=== PATIENT | female | born 1985 | race Two or more races ===

== ENCOUNTER → 2020-08-17 | Outpatient (CLI) | payer MEDICAID ==
[2020-08-17 09:46] LABS: Basophils # (auto) 0.1 10 ^3/uL (0-0.2); Basophils % (auto) 0.9 % (0.0-2.0); Eosinophils # (auto) 0.3 10 ^3/uL (0-0.8); Eosinophils % (auto) 2.7 % (0.0-7.0); Hematocrit 41.2 % (36.0-46.0); Hemoglobin 13.6 g/dL (12.2-16.2); Lymphocytes # (auto) 1.4 10 ^3/uL (0.4-5.4); Lymphocytes % (auto) 12.9 % (10.0-50.0); Mean Corpuscular Hemoglobin 27.6 pg (28.0-32.0); Mean Corpuscular Volume 83.5 fL (80.0-100.0); Monocytes # (auto) 0.5 10 ^3/uL (0-1.3); Monocytes % (auto) 4.7 % (0.0-12.0); Neutrophils # (auto) 8.2 10 ^3/uL (1.6-8.6); Neutrophils % (auto) 78.8 % (37.0-80.0); Platelet Count (auto) 331 10^3/uL (140-450); Red Blood Cells 4.94 10^6/uL (4.0-5.20); Red Cell Distribution Width 14.3 % (11.8-14.3); White Blood Cell 10.4 10^3/uL (4.4-10.8)
[2020-08-17 10:00] LABS: Urine Bacteria FEW /hpf (None Seen); Urine Blood Negative /uL (Negative); Urine Specific Gravity 1.014 (1.001-1.035); Urine WBC <1 /hpf (0 - 5)
[2020-08-17 10:12] LABS: Potassium 4.7 mmol/L (3.5-5.1)
[2020-08-17 10:21] LABS: BUN/Creatinine Ratio 13.2; Bilirubin, Total 0.6 mg/dL (0.2-1.0); Total Protein 7.4 g/dL (6.4-8.2)
== END | disposition home or self-care (01) ==
LOC: LAB 09:27
PROVIDERS: ATTEND Internal Medicine Nephrology
DX: E11.9 Type 2 diabetes mellitus without complications (principal); I10 Essential (primary) hypertension; N39.0 Urinary tract infection, site not specified
CPT/HCPCS: 36415; 80053; 80061; 81001; 85025

== ENCOUNTER 2020-10-14 08:26 | Emergency (ER) | payer MEDICAID ==
[~2020-10-14] VITALS: Ht 162.6 cm; Wt 95.3 kg
[2020-10-14 08:34] VITALS: BP 155/97
== END 2020-10-14 11:30 | disposition left against medical advice (07) ==
LOC: ER 08:26
DX: R10.32 Left lower quadrant pain (principal); R11.0 Nausea; R19.7 Diarrhea, unspecified; Z53.21 Procedure and treatment not carried out due to patient leaving prior to being seen by health care provider

== ENCOUNTER → 2023-02-24 | Outpatient (CLI) | payer MEDICAID ==
[~2023-02-24] VITALS: Ht 162.6 cm; Wt 93.0 kg
== END | disposition home or self-care (01) ==
LOC: Rad HDHVI 09:38
PROVIDERS: ATTEND Internal Medicine Cardiovascular Disease
DX: Z01.810 Encounter for preprocedural cardiovascular examination (principal); R07.9 Chest pain, unspecified; I10 Essential (primary) hypertension; E11.69 Type 2 diabetes mellitus with other specified complication; E78.5 Hyperlipidemia, unspecified; Z82.49 Family history of ischemic heart disease and other diseases of the circulatory system
CPT/HCPCS: 78452; 93017; 96374; A9500

== ENCOUNTER → 2023-02-28 | Outpatient (CLI) | payer MEDICAID | END | disposition home or self-care (01) | LOC: Rad HDHVI 10:06 | PROVIDERS: ATTEND Internal Medicine Cardiovascular Disease | DX: R00.2 Palpitations (principal); E78.5 Hyperlipidemia, unspecified | CPT/HCPCS: 93306 ==

== ENCOUNTER 2025-01-15 12:05 | Emergency (ER) | payer MEDICAID, OTHER ==
[~2025-01-15] VITALS: Ht 162.6 cm; Wt 75.0 kg
[2025-01-15 12:09] VITALS: BP 146/105; RESP 15; TEMP 97.9; O2SAT 100
--- NOTE | 2025-01-15 13:25 | ED.PDOC ---
History of Present Illness HPI Comments 39-YEAR-OLD FEMALE PRESENTS TO THE ER WITH PRIOR MEDICAL HISTORY OF DIABETES, HYPERTENSION, HIGH LIPIDS AND A CHIEF COMPLAINT OF THE CHEST PAIN. PATIENT REPORTS ON BEING AWOKEN FROM HAVING [place] AND DUE CHEST PAIN WHICH HE WAS A TINGLING SENSATION DOWN THE LEFT ARM LAST NIGHT. WHEN THE PATIENT WOKE UP THIS MORNING SHE HAD A CONSTANT CHEST PAIN AND NOTES ON HAVING PAIN WORSENS WHEN LYING FLAT. PATIENT HAS HAD A STRESS TEST TWO YEARS AGO WHICH WAS NEGATIVE. PATIENT DOES NOT HAVE A SIGNIFICANT SHORTNESS A BREATH AT THIS TIME. DENIES ANY OTHER SYMPTOMS AT THIS TIME. DENIES CHILLS, FEVER, N/V/D. NO OTHER ASSOCIATED SYMPTOMS, MODIFIERS, RECENT INJURIES OR SICK CONTACTS PRESENT AT THIS TIME. 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 History Family History Family History: Reviewed,noncontributory to illness, Unknown Social History Smoker: Non-Smoker Alcohol: Denies ETOH Use Drugs: Denies Drug Use Lives In: Home Constitutional: denies: chills, diaphoresis, fatigue, fever, malaise, sweats, weakness, others EENTM: denies: blurred vision, double vision, ear bleeding, ear discharge, ear drainage, ear pain, ear ringing, eye pain, eye redness, hearing loss, mouth pain, mouth swelling, nasal discharge, nose bleeding, nose congestion, nose pain, photophobia, tearing, throat pain, throat swelling, voice changes, others Respiratory: reports: shortness of breath; denies: cough, hemoptysis, orthopnea, SOB at rest, SOB with excertion, stridor, wheezing, others Cardiovascular: reports: chest pain; denies: dizzy spells, diaphoresis, Dyspnea on exertion, edema, irregular heart beat, left arm pain, lightheadedness, palpitations, PND, syncope, others Gastrointestinal: denies: abdomen distended, abdominal pain, blood streaked bowels, constipated, diarrhea, dysphagia, difficulty swallowing, hematemesis, melena, nausea, poor appetite, poor fluid intake, rectal bleeding, rectal pain, vomiting, others Genitourinary: denies: abnormal vagina bleeding, burning, dyspareunia, dysuria, flank pain, frequency, hematuria, incontinence, pain, , vagina discharge, urgency, others Neurological: denies: dizziness, fainting, headache, left sided numbness, left sided weakness, numbness, paresthesia, pre-existing deficit, right sided numbness, right sided weakness, seizure, speech problems, tingling, tremors, weakness, others Musculoskeletal: denies: back pain, gout, joint pain, joint swelling, muscle pain, muscle stiffness, neck pain, others Integumetry: denies: bruises, change in color, change in hair/nails, dryness, laceration, lesions, lumps, rash, wounds, others Allergic/Immunocompromised: denies: Difficulty Healing, Frequent Infections, Hives, Itching, others Hematologic/Lymphatic: denies: anemia, blood clots, easy bleeding, easy bruising, swollen glands, others Endocrine: denies: excessive hunger, excessive sweating, excessive thirst, excessive urination, flushing, intolerance to cold, intolerance to heat, unexp lained weight gain, unexplained weight loss, others Psychiatric: denies: anxiety, bipolar disorder, depression, hopeless, panic disorder, schizophrenia, sleepless, suicidal, others All Other Systems: Reviewed and Negative Physical Exam General Appearance: No Apparent Distress, Normal HEENT: Normal ENT Inspection, Pharynx Normal, TMs Normal Neck: Full Range of Motion, Non-Tender, Normal, Normal Inspection Respiratory: Chest Non-Tender, Lungs Clear, No Accessory Muscle Use, No Respiratory Distress, Normal Breath Sounds Cardiovascular: No Edema, No JVD, No Murmur, No Gallop, Normal Peripheral Pulse s, Regular Rate/Rhythm Breast Exam: Deferred Gastrointestinal: No Organomegaly, Non Tender, No Pulsatile Mass, Normal Bowel Sounds, Soft Genitalia: Deferred Pelvic: Deferred Rectal: Deferred Extremities: No calf tenderness, Normal capillary refill, Normal inspection, Normal range of motion, Non-tender, No pedal edema Musculoskeletal : Apperance: Normal Neurologic: Alert, neuropsychology division chief II-XII nml as Tested, No Motor Deficits, Normal Affect, Normal Mood, No Sensory Deficits Cerebellar Function: Normal Reflexes: Normal Skin: Dry, Normal Color, Warm Lymphatic: No Adenopathy Was a procedure done? Was a procedure done?: No EKG EKG : Pulse Rate (adult): 109 [place]: Normal Cardiac Rhythm: ST Block: None Hypertrophy: None ST: Normal Differential Dx Considerations may include: Mi, anxiety, pneumonia, pleural effusion, musculoskeletal chest pain X-Ray, Labs, Meds, VS Vital Signs Date Time Temp Pulse Resp B/P (MAP) Pulse Ox O2 Delivery O2 Flow Rate FiO2 01/15/25 13:25 109 01/15/25 13:08 100 01/15/25 12:11 102 01/15/25 12:09 97.9 100 15 146/105 100 97.9 Lab Test 01/15/25 13:11 01/15/25 12:44 01/15/25 12:15 Range/Units Troponin I High Sensitivity < 3 L < 3 L </=34 ng/L White Blood Count 10.9 H 4.4-10.8 10^3/uL Red Blood Count 5.54 H 4.0-5.20 10^6/uL Hemoglobin 13.5 12.2-16.2 g/dL Hematocrit 41.7 36.0-46.0 % Mean Corpuscular Volume 75.1 L 80.0-100.0 fL Mean Corpuscular Hemoglobin 24.3 L 28.0-32.0 pg Mean Corpuscular Hemoglobin Concent 32.3 32.0-36.0 g/dL Red Cell Distribution Width 16.1 H 11.8-14.3 % Platelet Count 456 H 140-450 10^3/uL Mean Platelet Volume 8.1 6.9-10.8 fL Neutrophils (%) (Auto) 69.1 37.0-80.0 % Lymphocytes (%) (Auto) 25.1 10.0-50.0 % Monocytes (%) (Auto) 4.7 0.0-12.0 % Eosinophils (%) (Auto) 0.8 0.0-7.0 % Basophils (%) (Auto) 0.3 0.0-2.0 % Neutrophils # (Auto) 7.5 1.6-8.6 10 ^3/uL Lymphocytes # (Auto) 2.7 0.4-5.4 10 ^3/uL Monocytes # (Auto) 0.5 0-1.3 10 ^3/uL Eosinophils # (Auto) 0.1 0-0.8 10 ^3/uL Basophils # (Auto) 0 0-0.2 10 ^3/uL Nucleated Red Blood Cells 0.1 % Sodium Level 143 136-145 mmol/L Potassium Level 3.9 3.5-5.1 mmol/L Chloride Level 100 98-107 mmol/L Carbon Dioxide Level 28 20-31 mmol/L Anion Gap 15 5-15 Blood Urea Nitrogen 8 L 9-23 mg/dL Creatinine 0.66 0.550-1.02 mg/dL Glomerular Filtration Rate Calc 114 >90 mL/min BUN/Creatinine Ratio 12.1 10.0-20.0 Serum Glucose 103 74-106 mg/dL Calcium Level 10.5 H 8.7-10.4 mg/dL X-Ray, Labs, Meds, VS Comment Imaging was reviewed by this provider, there is no obvious pathological or acute disease process. Pending radiology review Labs were reviewed by this provider, no abnormalities Vital signs reviewed by this provider, clinically stable Time of 1ST Reevaluation: 13:50 Reevaluation 1ST: Unchanged Patient Education/Counseling: Diagnosis, Treatment, Prognosis, Need For Follow Up (Follow up with PCP next available appointment. Return to the emergency department if symptoms worsen.) Family Education/Counseling: No Family Present SEPSIS Sepsis Screen Date sepsis recognized/suspect: Jan 15, 2025 Time Sepsis recognized/suspect: 121 Recent Procedure: No On Antibiotic Therapy: No Respiratory Rate >20: No Heart Rate >90: No Temp<36 C (96.8 F) or >38.3 C: No SBP <90 or MAP <65 mmHG: No New Acute Mental Status Change: No Is the patient on CPAP, BIPAP,: No Physician Orders Electrocardigram (01/15/25 12:08) Electrocardigram (01/15/25 13:08) Electrocardigram (01/15/25 15:08) Chest Xray 1 View (01/15/25 12:44) Ketorolac Injection (Toradol Injection) (01/15/25 15:45) Vital Signs Date Time Temp Pulse Resp B/P (MAP) Pulse Ox O2 Delivery O2 Flow Rate FiO2 01/15/25 13:25 109 01/15/25 13:08 100 01/15/25 12:11 102 01/15/25 12:09 97.9 100 15 146/105 100 97.9 Laboratory Tests Test 01/15/25 12:44 White Blood Count 10.9 10^3/uL (4.4-10.8) H Departure 1 Departure Time of Disposition: 15:46 Impression: Primary Impression: Musculoskeletal chest pain Disposition: HOME / SELF CARE / HOMELESS Condition: Stable e-Prescriptions Cyclobenzaprine Hcl (Cyclobenzaprine Hcl) 5 Mg Tab 1 TAB PO TID, #30 TAB Prov: THO LOPEZ 01/15/25 Discharged With: Self Critical Care Note Critical Care Time?: No Stability Stability form required: No Heart Score Heart Score: Heart Score Response (Comments) Value History Slightly Suspicious 0 EKG Normal 0 Age <45 0 Risk Factors No known risk factors 0 Troponin Normal limit 0 Total 0 I personally scribed for THO LOPEZ ([email or web address]) on 01/15/25 at 13:25. Electronically submitted by Johan Jimenez ([email or web address]). THO LOPEZ Jan 15, 2025 13:25
[2025-01-15 13:41] LABS: Nucleated Red Blood Cells % 0.1 %
[2025-01-15 13:43] LABS: Hematocrit 41.7 % (36.0-46.0); Hemoglobin 13.5 g/dL (12.2-16.2); Mean Corpuscular Hemoglobin 24.3 pg (28.0-32.0); Mean Corpuscular Volume 75.1 fL (80.0-100.0)
[2025-01-15 13:56] LABS: Chloride 100 mmol/L (98-107); Potassium 3.9 mmol/L (3.5-5.1); Sodium 143 mmol/L (136-145)
[2025-01-15 13:58] LABS: Anion Gap 15 (5-15); Carbon Dioxide 28 mmol/L (20-31)
[2025-01-15 14:00] LABS: Calcium 10.5 mg/dL (8.7-10.4)
[2025-01-15 14:03] LABS: BUN/Creatinine Ratio 12.1 (10.0-20.0); Blood Urea Nitrogen 8 mg/dL (9-23); Glucose 103 mg/dL (74-106)
--- NOTE | 2025-01-15 14:14 | DVH ---
EXAM: XY CHEST XRAY 1 VIEW Indication: Pain Technique: Single frontal view of the chest was obtained Comparison: None FINDINGS: Lines and Tubes: None Lungs: No focal consolidation. Pleura: No effusion. No pneumothorax. Cardiomediastinal contours: Unremarkable Bones: No acute osseous abnormality. IMPRESSION: No acute cardiopulmonary disease.
[2025-01-15 15:07] VITALS: PULSE 91
[2025-01-15] MEDS ORDERED: KETOROLAC TROMETH 30 MG/ML 1ML VIAL IM ONE (15:45)
[2025-01-15] MEDS ORDERED: CYCL-837 PO (15:46)
--- NOTE | 2025-01-16 08:05 | ECG ---
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
--- NOTE | 2025-01-16 08:06 | ECG ---
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
== END 2025-01-15 16:07 | disposition home or self-care (01) ==
LOC: ER 12:05
DX: R07.89 Other chest pain (principal); R20.2 Paresthesia of skin; I10 Essential (primary) hypertension; E11.9 Type 2 diabetes mellitus without complications; E78.5 Hyperlipidemia, unspecified
CPT/HCPCS: 36415; 71045; 80048; 84484; 85025; 93005